=== PATIENT | male | born 1950 | race Caucasian/White ===

== ENCOUNTER 2016-12-23 14:26 | Inpatient (IN) | payer BC, MEDICARE, OTHER ==
--- NOTE | ~2016-12-23 | IDS ---
Interim Discharge Summary [facility] [address] [place]. [address] NAME: BETH MALIK : 52 STATUS : ADM IN PAT#: [id number] AGE: 66 ADM/REG DATE : 12/23/16 MR#: [id number] REPORT SERV DATE: 01/08/17 DICTATED BY: BETH RODRIGUEZ DATE: 01/08/17 REPORT STATUS : Draft TRANSCRIBED BY: MODL DATE: 01/08/17 ADMISSION DATE: 12/23/2016 DISCHARGE DATE: DATE OF TRANSFER TO THE ICU: 12/24/2016. DATE OF LAST INTERIM DISCHARGE SUMMARY: 01/01/2017. DATE OF THIS INTERIM SUMMARY: 01/08/2017. INTERIM DIAGNOSES: 1. Acute hypoxic respiratory failure. 2. Enterobacter pneumonia. 3. Haemophilus influenzae bacteremia. 4. Acute chronic obstructive pulmonary disease. 5. Hyperactive delirium. 6. Type 2 diabetes. 7. Atrial fibrillation with rapid ventricular response. ICU COURSE: Please see dictated H and P as well as consult notes and last interim summary by Dr. Orellana, on 01/01/2017 for previous presentation and hospitalization up until that point. When I took over care of the patient beginning on the 01/04/2017, the patient remained on the ventilator at that time, and was growing Enterobacter in his sputum and having some issues with hyperactive delirium making it difficulty to wean him from the ventilator. 1. Acute hypoxic respiratory failure. The patient had a trial of extubation with re- intubation last week and was approaching potential for tracheostomy this week. When I took over again to do daily CPAP trials, the patient made progress and was able to be liberated from the ventilator on the 01/05/2017. Since that time, he has actually done very well from a respiratory standpoint. We have been doing aggressive pulmonary toilet with spirometry, EzPAP, flutter valve. PT is also started seeing him and has been working with him. He did fail his initial swallow study several days ago, so he is currently n.p.o. and has an NG tube for his tube feeds and his p.o. medications. He is supposed to repeat the swallow test today. His voice does appear stronger, so hopefully he will pass and we can start feeding him as he really wants his NG tube out. 2. Enterobacter pneumonia. The patient grew Enterobacter in his sputum which was resistant to the Rocephin that he was on at that time for H flu bacteremia, so he was changed to meropenem. He is now completed a course of antibiotics, and those were discontinued yesterday. No evidence of continued active pneumonia at this time. 3. H flu bacteremia. The patient completed a course of antibiotics for that, repeat cultures are negative. 4. COPD. The patient remains on bronchodilators. He is not on any IV steroids at this time. 5. Acute hyperactive delirium. Main issue to keep the patient in the ICU at this time is acute hyperactive delirium. He has been on Precedex all week. We have been weaning that and have almost been able to get him off that. I have him on p.o. Seroquel and have added IV Haldol p.r.n. in attempts to wean him off the Precedex. Once he is able Interim Discharge Summary [address] [place]. [address] NAME: BETH MALIK : 52 STATUS : ADM IN [facility]#: [id number] AGE: 66 ADM/REG DATE : 12/23/16 MR#: [id number] REPORT SERV DATE: 01/08/17 DICTATED BY: BETH RODRIGUEZ DATE: 01/08/17 REPORT STATUS : Draft TRANSCRIBED BY: FELI DATE: 01/08/17 to sustain off the Precedex and have his delirium controlled, then he should be able to go out to the floor. 6. Type 2 diabetes. The patient is well controlled on Levemir and sliding scale insulin. 7. Atrial fibrillation with rapid ventricular response. The patient has been well controlled on p.o. amiodarone all week. 8. The patient still remains in the ICU at this time. Again, biggest issue right now is his delirium. If we get him off the Precedex, we get him out to the floor. The oncoming director quality systems will take over care of the patient tomorrow. Please call if you have any questions. VANI/FELI Beth Rodriguez MD / [id number] CC: DO Yousuf Mane
--- NOTE | ~2016-12-23 | OP ---
Record Of Operation [facility] [address] [place] [address] NAME: BETH MALIK : 52 STATUS : ADM IN PAT#: [id number] AGE: 66 ADM/REG DATE : 12/23/16 MR#: [id number] REPORT SERV DATE: 12/31/16 DICTATED BY: LILA ORELLANA DATE: 12/31/16 REPORT STATUS : Draft TRANSCRIBED BY: MODL DATE: 12/31/16 DATE OF PROCEDURE: 12/31/2016 PROCEDURE: Intubation. REASON AND PROCEDURE DETAIL: The patient initially intubated for pneumonia, hypoxia, and delirium tremens. The patient has been a difficult wean over the past few days, and trial extubation was done to see if the patient would be able to remain off the vent. However, he became tachypneic soon afterwards and required intubation which was accomplished with 5 mL of IV Diprivan and 20 mg of IV etomidate. A GlideScope was used with a #4 blade. Vocal cords were well visualized and an #8 endotracheal tube was placed on the first attempt without difficulty. Chest x-ray confirmed good placement of the tube. /FELI Lila Orellana M.D. / [id number] CC: Francisco Estrada, [facility]
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
--- NOTE | ~2016-12-23 | DS ---
Discharge Summary [facility] [address] [place]. [address] NAME: BETH MALIK : 52 STATUS : DIS IN PAT#: [id number] AGE: 66 ADM/REG DATE : 12/23/16 MR#: [id number] REPORT SERV DATE: 01/14/17 DICTATED BY: JACKY BROWN DATE: 01/13/17 REPORT STATUS : Draft TRANSCRIBED BY: MODL DATE: 01/13/17 ADMISSION DATE: 12/23/2016 DISCHARGE DATE: 01/13/2017 CONSULTANTS: Dr. Johnnie Pérez and Dr. Alpa Orellana and Dr. Beth Rodriguez, Critical Care and Dr. Iraheta, Ear, Nose, and Throat. DISCHARGE DIAGNOSES: 1. Acute hypoxic respiratory failure due to community-acquired pneumonia and resultant in ventilator dependent respiratory status and septic shock with Enterobacter. 2. Haemophilus influenzae bacteremia. 3. Acute exacerbation of chronic obstructive pulmonary disease. 4. True vocal cord paralysis, right side. 5. Delirium tremens in an alcoholic. 6. Diabetes mellitus type 2. 7. Paroxysmal atrial fibrillation. 8. Adenocarcinoma, left upper lobe status post radiation therapy. 9. Hepatitis C virus. 10.Chronic pain involving neck, shoulders, and back on chronic opiates. 11.History of gynecomastia. HISTORY: The patient presented to the emergency room at [facility] with lethargy, low blood pressure, shortness of breath, chest pain, was initially admitted to the Hospitalist Service in the IMCU with IV fluids, antibiotics, and cultures. The patient deteriorated and had to be moved to the intensive care and required intubation. Sputum cultures had grown out Enterobacter cloacae, one set grew out Staph aureus, two blood cultures grew out Haemophilus influenza. The patient had to be reintubated a number of times, was difficult to wean off the ventilator. CT of his chest showed improving consolidation in the left upper lobe, some patchy left lower lobe consolidation, some nodular irregularity of right apex, possibly fibrosis as well as COPD. The patient went through alcohol withdrawal and delirium making it difficult to get him out of the intensive care. He had Seroquel and Ativan, which seemed to finally helped best of all. He was able to move then out of the intensive care. While in the intensive care and acutely ill, he had transient atrial fibrillation with rapid ventricular response. He was placed on amiodarone and metoprolol, converted back into sinus rhythm while in the intensive care and not placed on any anticoagulation by the Critical Care team. The patient has severe protein-calorie malnutrition. He initially was getting tube feedings. After extubation, he was noticed to have a persistent hoarseness of his voice, so was seen by Swallow and Speech. They did a modified barium showing that he should be on a purred diet, pureed meats and gravy, and pudding-thickness liquid, and recommended for Discharge Summary [address] [address] NAME: BETH MALIK : 52 STATUS : DIS IN PAT#: [id number] AGE: 66 ADM/REG DATE : 12/23/16 MR#: [id number] REPORT SERV DATE: 01/14/17 DICTATED BY: JACKY BROWN DATE: 01/13/17 REPORT STATUS : Draft TRANSCRIBED BY: FELI DATE: 01/13/17 outpatient electrical stimulation therapy. He was seen by Ear, Nose, and Throat, Dr. Iraheta on 01/11/2017 and found to have right-sided true vocal cord palsy, possibly due to the lengthy intubation as well as his lung cancer. He also recommended thickened liquids and outpatient electrical stimulation therapy and follow up in his office in about two weeks. The patient has hepatitis C antibody positive. The rest of his hepatitis panel was negative and his HIV was nonreactive. His urine strep and Legionella antigens were nonreactive. He did have acute kidney injury with his creatinine going up to a peak of 3.35 on admission, but it normalized within a few days and stayed normal throughout the rest of his hospitalization. He is ambulatory, felt to not need inpatient PT or OT, but outpatient speech and swallow therapy and those arrangements are made. He is calm. He is cooperative. He has been sleeping well. We have been tapering down his Seroquel. He is currently at 50 mg p.o. q.h.s. and we anticipate that his PCP should be able to continue tapering that down and off. We are also recommending case management to give him AA options for long-term follow up. He states he has done smoking and drinking, but we would recommend that nonetheless. His discharge followup should include a visit with his PCP, Dr. Yousuf Bryant in one week. With his Pain Management, Dr. Francisco Pappas in [place] as his per usual routine, with [facility] as a new patient to followup after this one episode of paroxysmal atrial fibrillation when he had acute pneumonia and shock. He should see them in about three to four weeks. He should follow up with Ear, Nose, and Throat, Dr. Beth Iraheta in two weeks and Radiation Oncology, Dr. Sheikh as scheduled. He had a PICC line which we are asking to be removed before discharge. DISCHARGE MEDICATIONS: Amiodarone 200 mg b.i.d. folic acid 1 mg daily, melatonin 3 mg at bedtime p.r.n., metoprolol 12.5 mg b.i.d., nicotine patch 21 mg size [id number], Prilosec 20 mg daily, Seroquel 50 mg at bedtime (with tapering by PCP to the point where hopefully he can be off at all together), Florastor twice a day for three weeks, metformin 500 mg b.i.d., albuterol MDI two puffs q.4 hours p.r.n. shortness of breath, Symbicort 160/4.5 two puffs b.i.d., Tylenol 650 q.6 hours p.r.n. minor pain, Percocet 10/325 q.i.d. which he takes chronically from his Pain Management doctor p.r.n., Flomax 0.4 mg each evening, Spiriva one capsule inhaled daily, aspirin 81 mg daily, nitroglycerin 0.4 mg sublingual p.r.n. chest pain. He had an echocardiogram on 12/24/2016, left atrial size 3.3 cm, left ventricular ejection fraction 50%. I spent 41 minutes today with the patient and with discharge planning. DICTATED BY: Jacky Brown M.D. RSG/MODL Discharge Summary [address] [address] NAME: BETH MALIK : 52 STATUS : DIS IN PAT#: [id number] AGE: 66 ADM/REG DATE : 12/23/16 MR#: [id number] REPORT SERV DATE: 01/14/17 DICTATED BY: JACKY BROWN DATE: 01/13/17 REPORT STATUS : Draft TRANSCRIBED BY: FELI DATE: 01/13/17 Jacky Brown M.D. / [id number] CC: Jacky Brown M.D. [facility] Shine Sheikh M.D. , [facility] Ezequiel Garcia MD
--- NOTE | ~2016-12-23 | CN ---
Consultation Report [facility] [address] [place]. [address] NAME: BETH SWEET : 52 STATUS : ADM IN [facility]#: [id number] AGE: 66 ADM/REG DATE : 12/23/16 MR#: [id number] REPORT SERV DATE: 12/24/16 DICTATED BY: SYLWIA PÉREZ IV DATE: 12/24/16 REPORT STATUS : Draft TRANSCRIBED BY: FELI DATE: 12/24/16 PULMONARY CONSULTATION DATE OF CONSULTATION: 12/24/2016 TIME SEEN: 1130 hours to 1200 hours and 1330 hours to 1400 hours for 60 minutes of critical care time. REASON FOR REQUEST: Hypoxemic respiratory failure, multilobar pneumonia, and sepsis. HISTORY OF PRESENT ILLNESS: History was obtained from the records and from the patient. Mr. Sweet is a 66-year-old male with a history of COPD, reported lung cancer, status post radiation therapy, diabetes mellitus, alcohol and tobacco dependency, who was admitted with pleuritic left-sided chest pain with shortness of breath and significant hypotension with sepsis and multilobar pneumonia. The patient was reportedly in his normal state of health until the day prior to presentation. He developed a cough intermittently productive of clear phlegm with chills. He had noted increasing shortness of breath with left pleuritic chest pain. Because of progressive symptoms, he sought evaluation in the emergency room. There, he was significantly hypotensive with systolic blood pressures in the 60s. He was given fluid resuscitation and had a CT angiogram performed which demonstrated multilobar pneumonia predominantly on the left. The patient was empirically placed on antibiotic therapy. He was given 3 L of fluid, however, had persistent hypotension for which he was moved to the [facility]. He had increasing oxygen needs. Currently, he is on BiPAP therapy. The patient is on bronchodilator medications at home with which he is compliant. He is not on supplemental oxygen. The patient was exposed to his brother who had a respiratory infection. The patient denies hemoptysis. PULMONARY HISTORY: Remarkable for no history of childhood asthma. He does carry the diagnosis of adult COPD though no pulmonary function studies are available at this facility. He reportedly has had lung cancer diagnosed at the [facility] and treated by Dr. Sheikh at [facility] with the CyberKnife. The patient is a [id number] smoker who continues to smoke two packs a day. He is unsure about his immunization status. PAST MEDICAL HISTORY: Remarkable for: 1. COPD. 2. Reported lung cancer. 3. Diabetes mellitus. 4. Alcohol and tobacco dependency. SURGERIES: Appendectomy and CyberKnife treatment for the lung cancer. ALLERGIES: THERE ARE NO KNOWN DRUG ALLERGIES. CURRENT MEDICATIONS: The patient is on Brovana unit dose twice a day, DuoNebs every four Consultation Report [address] [place]. [address] NAME: BETH SWEET : 52 STATUS : ADM IN PAT#: [id number] AGE: 66 ADM/REG DATE : 12/23/16 MR#: [id number] REPORT SERV DATE: 12/24/16 DICTATED BY: SYLWIA PÉREZ IV DATE: 12/24/16 REPORT STATUS : Draft TRANSCRIBED BY: FELI DATE: 12/24/16 hours, folic acid 1 mg daily, Habitrol patch 21 mg daily, heparin 5000 units q.12 hours, vancomycin per Pharmacy, Mucomyst every 8 hours for 48 hours, insulin sliding scale, Protonix 40 mg daily, Pulmicort 1 mg twice a day, Solu-Cortef 100 mg q.8 hours, multivitamin daily, and Zosyn 3.375 g q.8 hours. SOCIAL HISTORY: Remarkable for the tobacco use as above. The patient has seven beers a day and drinks seven days a week. He has by his report not had withdrawal, though reportedly has had withdrawal in the records. He takes narcotics though no other illicit drug use. He is has four children. FAMILY HISTORY: Remarkable for mother with diabetes mellitus and father with COPD and there is a brother with alcohol use. REVIEW OF SYSTEMS: 14 systems reviewed and pertinent positives as noted above. PHYSICAL EXAMINATION: GENERAL: This is an actually well-developed elderly male, appearing older than his stated age, who is slightly agitated and constantly wanting to remove his BiPAP mask to drink water. VITAL SIGNS: Temperature is 98, pulse is 94, respiratory rate is 32, saturations are 93% on 50% on the BiPAP, and blood pressure is 96/67. HEENT: The patient is normocephalic, atraumatic. Extraocular movements are intact. Pupils react to light. Sclerae and conjunctivae normal. He has a BiPAP mask in place on quick look. He has a Mallampati II to III airway with narrowing of the posterior pharyngeal space. He is edentulous. NECK: Without any palpable lymphadenopathy or thyromegaly. CHEST: The patient has crackles and rhonchi throughout the inspiratory crackles and inspiratory and expiratory rhonchi throughout the left hemithorax with some rhonchi expiratory on the right. No true wheezes are noted. Expiratory phase is prolonged. CARDIOVASCULAR: Jugular venous pulsations are difficult to elicit. He has 2+ carotid upstrokes. No obvious bruit. He has a regular S1, S2 with no clear murmur or S3. Peripheral pulses are diminished. ABDOMEN: Protuberant, soft. There are hypoactive bowel sounds. There is no palpable hepatosplenomegaly or mass. Surgical scars noted. EXTREMITIES: Demonstrate no cyanosis, clubbing, edema, or palpable cords. NEUROLOGIC: The patient follows commands, able to move all extremities. Strength is 5/5 and sensation is intact to light touch. LABORATORY DATA: Chest, CT scan, and x-ray demonstrates infiltrate throughout the left hemithorax. No significant mass or adenopathy is noted. On CT scan, he is predominantly in the posterior left upper lobe into the lingula and some medial left lower lobe and some patchy right lower lobe. Urine antigens for Legionella and Pneumococcus are negative. CBC: Hemoglobin 11.5, hematocrit 33.5, platelet count was 105,000, white count is 2.9. INR Consultation Report [address] [address] NAME: BETH SWEET : 52 STATUS : ADM IN [facility]#: [id number] AGE: 66 ADM/REG DATE : 12/23/16 MR#: [id number] REPORT SERV DATE: 12/24/16 DICTATED BY: SYLWIA PÉREZ IV DATE: 12/24/16 REPORT STATUS : Draft TRANSCRIBED BY: MODL DATE: 12/24/16 is 1.5, PTT is 38.6 procalcitonin level is 33.23, lactate was initially 7.9, now 4.2. Chemistry: Sodium 133, potassium 4.1, chloride 98, bicarb 21, BUN 30, creatinine 2.09, glucose of 105. Magnesium is 1.5. Phos is 4. Hemoglobin A1c is 6.2. BNP is 721. Blood gas shows pH 7.32, pCO2 of 40, pO2 of 52 with the admission pCO2 of 48, urine drug screen was positive for opiates. ASSESSMENT AND PLAN: 1. Respiratory. The patient was tried transient Vapotherm because this is predominantly hypoxemic respiratory failure. However, he was intolerant and required to go back on BiPAP. We will add humidification. Rate will be decreased to 10. He will remain on his current nebulizer treatments with DuoNebs being given the EzPAP if he is not on BiPAP, Mucomyst will be given q.8 hours q.48 hours and discontinue. X-ray will be obtained daily. Blood gas will be obtained in the morning. 2. Infectious disease. The patient will be given broad coverage, was remaining on the Zosyn and vancomycin. Sputum was sent for Gram stain culture all possible. Urine antigens were negative. 3. Cardiovascular. Echocardiogram will be obtained with the elevated BNP. Levophed will be given if needed to maintain mean arterial pressure greater than 65. Vasopressin will be added if required. 4. Neurologic. Precedex will be given for alcohol withdrawal as well as for tolerance of the BiPAP. Ativan can be added as needed. Habitrol patch for tobacco dependency 21 mg daily, thiamine 200 mg IV daily. Pain medications as needed. 5. Gastrointestinal. Protonix will be continued. Clear liquid diet only. 6. Renal. The patient is on acute kidney injury on presentation, which has improved with hydration. Magnesium will be replaced. Phos will be added to the labs in the morning. 7. Endocrinologic. Stress dose steroids will be given. Insulin sliding scale has been ordered. 8. Hematologic. Heparin subcutaneous for deep vein thrombosis prophylaxis. We will follow both the counts at an INR in the morning with mild coagulopathy and watch platelets with discontinuation of heparin if they drop further. Thank you for consulting us. We will follow the patient with you. NM/MODL Sylwia Pérez IV, M.D. / [id number] CC: Ezequiel Whitaker
--- NOTE | ~2016-12-23 | HP ---
History And Physical [address] [place]. [address] NAME: BETH MALIK : 52 STATUS : ADM IN [facility]#: [id number] AGE: 66 ADM/REG DATE : 12/23/16 MR#: [id number] REPORT SERV DATE: 12/24/16 DICTATED BY: OSVALDO HAYWOOD DATE: 12/23/16 REPORT STATUS : Draft TRANSCRIBED BY: MODL DATE: 12/23/16 DATE OF ADMISSION: 12/23/2016 CHIEF COMPLAINT: Shortness of breath and chest pain. HISTORY OF PRESENT ILLNESS: This is a 66-year-old gentleman with history of COPD, alcohol abuse, chronic pain, as well as smoking presenting with a left-sided chest pain and shortness of breath. The patient reports that he was feeling fine actually up until yesterday. The patient started having some sharp left-sided chest pain along with some shortness of breath throughout yesterday and today. The patient also had some cough with clear white sputum. The patient otherwise denies any fevers or chills. The patient decided to come to the ER for further evaluation and care. In the ER, patient was found to be profoundly hypotensive with blood pressures 60s over 40s upon arrival, although he was completely asymptomatic. The patient was also found to be hypoxic with oxygen saturations into the 80s and required 15 L of oxygen per nasal cannula to maintain adequate oxygenation. Again, this was contrary to his clinical appearance. Initial lab evaluation revealed a hyponatremia with sodium of 129 and acute kidney injury with creatinine of 3.35. CBC revealed a white blood cell count of 7.1 with 46% bands. CT of the chest without contrast revealed a multifocal pneumonia as well as COPD changes. Internal Medicine consultation was requested for admission of the patient for further evaluation and care. REVIEW OF SYSTEMS: The patient denies any fevers or chills. Also, 14-point review of systems reviewed and negative other than mentioned above. MEDICATIONS: The list is still pending at this time. PAST MEDICAL HISTORY: 1. Chronic back pain due to a degenerative disk disease. 2. The patient is on chronic opiate therapy with opiate dependence. [facility]. 3. Alcohol abuse and dependence with history of DTs. 4. Diabetes type 2. 5. Chronic obstructive pulmonary disease. 6. Questionable coronary artery disease. PAST SURGICAL HISTORY: Questionable coronary artery stent. FAMILY HISTORY: Alcohol abuse. SOCIAL HISTORY: The patient does smoke between 2 to 2-1/2 packs of cigarettes per day. The patient also abuses alcohol, although he is not very clear and specific about his amount. Also, patient is known to have abused multiple drugs in the past. History And Physical [address] [address] NAME: BETH MALIK : 52 STATUS : ADM IN PAT#: [id number] AGE: 66 ADM/REG DATE : 12/23/16 MR#: [id number] REPORT SERV DATE: 12/24/16 DICTATED BY: OSVALDO HAYWOOD DATE: 12/23/16 REPORT STATUS : Draft TRANSCRIBED BY: FELI DATE: 12/23/16 PHYSICAL EXAMINATION: VITAL SIGNS: Temperature 98.0, blood pressure 89/51, pulse 94, respiratory rate of 27, saturating 96% on 15 L of oxygen per nasal cannula. NEURO: The patient is alert and oriented x3 with no focal neurologic deficits. GENERAL: The patient is awake, does not appear to be in acute distress, and he is cooperative. NECK: No JVD. No lymphadenopathy. Normal thyroid. CHEST: No midline sternotomy scar and no tenderness to palpation. LUNGS: Diffuse rhonchi bilaterally but otherwise the patient has actually fairly normal respiratory effort, albeit he is on high-flow oxygen. CARDIOVASCULAR: The patient is slightly tachycardic, but otherwise, no murmurs, rubs, or gallops, and PMI is nondisplaced. ABDOMEN: Soft, nontender with active bowel sounds and no organomegaly. EXTREMITIES: No edema. Normal distal pulses. No calf tenderness. SKIN: Clean, dry, warm, and intact. LABORATORY DATA: Sodium is 129, potassium 3.8, chloride 95, BUN 30, creatinine 3.35, glucose 106, calcium 7.5, and magnesium 1.4. White blood cell count of 7.1 with 46% bands, hemoglobin is 11.2, platelets 147. INR is 1.5. Troponin is less than 0.02. ABG; pH is 7.25, pCO2 is 42, PO2 is 54, and oxygen saturation of 82.6 percent on 40% FiO2. Chest x-ray shows bilateral infiltrates. CT of the chest without contrast shows a multifocal pneumonia as well as extensive COPD changes. ASSESSMENT: This is a 66-year-old gentleman with history of smoking, polypharmacy, chronic obstructive pulmonary disease, presenting with community-acquired pneumonia with severe sepsis. 1. Community-acquired pneumonia with severe sepsis with hypotension. 2. Acute kidney injury with creatinine of 3.35 whereas his baseline is 1.22. 3. Acute hypoxic respiratory failure secondary to above. 4. Also a component of acute exacerbation of chronic obstructive pulmonary disease. 5. Continued smoking. 6. Alcohol abuse and dependence and possibly other drugs. 7. Hyponatremia. 8. Chronic back pain with narcotic dependence. 9. Diabetes. PLAN: The plan is to admit the patient into IMCU with extremely close monitoring. The patient will be given aggressive IV fluid resuscitation. In's and out's will be closely monitored as well as daily labs to include daily renal function. I will complete sepsis workup with blood cultures, sputum cultures, and procalcitonin level. I will also check urinary antigens for strep and Legionella. I will start the patient on empiric vancomycin and Zosyn, and I will also treat the patient with oxygen support, bronchodilator therapies, as well as IV Solu-Medrol. For the alcohol abuse with history of DTs, the patient will be on daily vitamins as well as CIWA protocol. For smoking cessation, counseling was provided, and the patient will be given a nicotine patch. For hyponatremia, I will continue to monitor his daily electrolytes. For chronic pain and opiate dependence, the patient will be given judicious amounts of pain control especially considering current hypotension. History And Physical [address] [address] NAME: BETH MALIK : 52 STATUS : ADM IN [facility]#: [id number] AGE: 66 ADM/REG DATE : 12/23/16 MR#: [id number] REPORT SERV DATE: 12/24/16 DICTATED BY: OSVALDO HAYWOOD DATE: 12/23/16 REPORT STATUS : Draft TRANSCRIBED BY: MODL DATE: 12/23/16 Standard DVT prophylaxis. The patient is full code at this time. [facility]ELI Osvaldo Haywood MD / [id number] CC: Ezequiel Whitaker
--- NOTE | ~2016-12-23 | OP ---
Record Of Operation [facility] [address] [place]. [address] NAME: BETH MALIK : 52 STATUS : ADM IN [facility]#: [id number] AGE: 66 ADM/REG DATE : 12/23/16 MR#: [id number] REPORT SERV DATE: 12/25/16 DICTATED BY: SYLWIA PÉREZ IV DATE: 12/25/16 REPORT STATUS : Draft TRANSCRIBED BY: FELI DATE: 12/25/16 DATE OF PROCEDURE: 12/25/2016 PREOPERATIVE DIAGNOSIS: Hypoxemic respiratory failure with multilobar pneumonia, worsening on BiPAP. POSTOPERATIVE DIAGNOSIS: Hypoxemic respiratory failure with multilobar pneumonia, worsening on BiPAP. PROCEDURE: Laryngoscopic intubation with ventilator setup and placement of an orogastric tube. INDICATIONS: Multilobar pneumonia, sepsis, and worsening encephalopathy. CONTRAINDICATIONS: None. CONSENT: No consent is obtained, it is a lifesaving procedure, and the patient is a full code. PREOPERATIVE LABS: The patient's INR is 1.4. The PTT is 38.6, and platelet count 107,000. METHOD: All equipment was made available. The patient was brought to the head of the bed. The patient had been on BiPAP at 100% with saturations currently at 100%. The patient was transitioned to Ambu bag ventilation. He was given 30 mg of etomidate. Using the GlideScope, the vocal cords were easily visualized. There was thick debris in the posterior pharyngeal space, which was removed with suction. A #8 endotracheal tube was advanced through the vocal cords without difficulty on first pass. There was appropriate color change on the CO2 indicator with bilateral breath sounds. The tube was secured to 24 cm. X ray is currently pending. There was no blood loss. Once the tube was secured, an orogastric tube was placed and secured at 65 cm. The positioning of both tubes are currently pending. There was no blood loss for either procedure. The patient tolerated the procedure well. Oxygen saturations remaining in the 100% range throughout the procedure. SUSAN/FELI Sylwia Pérez IV, M.D. / [id number] CC: Anastasiya Roche M.D.
[~2016-12-23 14:26] MED LIST: FLOMAX4 PO; GLUCPH PO; KLONO5 PO; L20 PO; NAP500 PO; NEUR600 PO; OXYCOD PO; OXYCON40 PO; PRILO PO; PROSCAR5 PO; PROVHFA INH; SEROQUEL50 MG PO; TRAZ100 PO
[2016-12-23 15:13] LABS: BASOPHILS 0 %; EOSINOPHILS 0 %; ER CBC TAT 0 Hrs 03 Mins; HEMATOCRIT 33.1 % (40.0-51.0); HEMOGLOBIN 11.2 g/dL (13.6-17.8); IMMATURE GRANULOCYTES 8.4 %; LYMPHOCYTES 4.9 %; LYMPHOCYTES ABSOLUTE 0.35 10/3/uL (0.67-4.30); MEAN PLATELET VOLUME 8.3 fL (9.2-13.0); MONOCYTES 5.5 %; MONOCYTES ABSOLUTE 0.39 10/3/uL (0.21-1.20); NEUTROPHILS 81.2 %; RBC DISTRIBUTION WIDTH 15.3 % (12.0-16.0); RED CELL COUNT 3.59 10/6/uL (4.7-6.1); WHITE BLOOD CELLS 7.1 10/3/uL (4.5-10.5)
[2016-12-23 15:16] LABS: MANUAL DIFF NO %; MEAN CORPUS HGB CONC 33.8 g/dL (32.0-36.0); MEAN CORPUSCULAR HEMOGLOB 31.2 pg (26.0-34.0); MEAN CORPUSCULAR VOLUME 92.2 fL (80-100); PLATELET COUNT 147 10/3/uL (150-400)
[2016-12-23 15:23] LABS: INTERNATIONAL NORMAL RATI 1.5 UNITS (-)
[2016-12-23 15:24] LABS: PARTIAL THROMBO TIME 38.6 SEC (22.5-37.2)
[2016-12-23 15:27] LABS: PROTIME (NOT ORD) 17.5 SEC (12.0-14.5)
[2016-12-23 15:30] LABS: CALCIUM, SERUM 7.5 MG/DL (8.5-10.4); CHEST PAIN PROFILE TAT 0 Hrs 20 Mins; CHLORIDE, SERUM 95 MMOL/L (96-112); GFR AFRICAN AMERICAN 21 ML/MIN (>=60); GFR NON AFRICAN AMERICAN 18 ML/MIN (>=60); GLUCOSE, SERUM 106 MG/DL (60-99); POTASSIUM, SERUM 3.8 MMOL/L (3.5-5.3); TROPONIN I <0.02 NG/ML (<0.05)
[2016-12-23 15:31] LABS: BUN (BLOOD UREA NITROGEN) 30 MG/DL (6-23); CO2 (CARBON DIOXIDE) 19 MMOL/L (24-34); CREATININE 3.35 MG/DL (0.70-1.30); SODIUM, SERUM 129 MMOL/L (135-148)
[2016-12-23 15:43] LABS: BAND NEUTROPHILS 46 %; ER DIFF TAT 0 Hrs 33 Mins; IMMATURE GRANS ABSOLUTE (CALC) 0.43 10/3/uL (0.0-0.11); LYMPHOCYTES 6 %; LYMPHOCYTES ABSOLUTE (CALC) 0.43 10/3/uL (0.67-4.30); METAMYELOCYTES 6 %; MONOCYTES 5 %; MONOCYTES ABSOLUTE (CALC) 0.36 10/3/uL (0.21-1.20); NEUTROPHILS ABSOLUTE (CALC) 5.89 10/3/uL (2.02-8.40); SEGMENTED NEUTROPHIL (0) 37 %; TOTAL NUCLEATED CELLS 100
[2016-12-23] MEDS ORDERED: ENDOCET1 TA3 PO (15:51)
[2016-12-23] MEDS ORDERED: CELEBREX400 MG PO (15:51)
[2016-12-23] MEDS ORDERED: PROVHFA INH (15:52)
[2016-12-23] MEDS ORDERED: PRILO PO (15:52)
[2016-12-23] MEDS ORDERED: GLUCPH PO (15:52)
[2016-12-23] MEDS ORDERED: TRAZ100 PO (15:53)
[2016-12-23] MEDS ORDERED: FLOMAX4 PO (15:53)
[2016-12-23] MEDS ORDERED: SPIRIVA INH (15:53)
[2016-12-23] MEDS ORDERED: SYMBICORT 160/41 INH INH (15:53)
[2016-12-23] MEDS ORDERED: ASAB PO (15:55)
[2016-12-23] MEDS ORDERED: [UNRECOGNIZED DRUG - OTHER] PO (15:56)
[2016-12-23] MEDS ORDERED: NITROSTAT0.4 MG SL (15:57)
[2016-12-23 16:12] LABS: PLATELET ESTIMATE ADQ (ADEQUATE); RBC MORPHOLOGY NORM (NORMAL)
[2016-12-23 17:38] LABS: ALLENS TEST Pos; BE (BASE EXCESS) -9.1 MEQ/L (0 +/- 2.5); DEVICE NC; HCO3 (ACTUAL BICARBONATE) 17.7 MEQ/L (23-27); INSTRUMENT SERIAL # 8087; PCO2 (CO2 TENSION) 42 MMHG (35-45); PO2 (O2 TENSION) 54 MMHG (79-93); SAMPLE Arterial; pH 7.25 (7.37-7.43)
[2016-12-23 18:43] LABS: LACTATE 7.9 MMOL/L (0.3-2.4)
[2016-12-23 18:51] LABS: AMPHETAMINES (NOT ORD) NEG (NEG); BARBITURATES (NOT ORDERED NEG (NEG); BENZODIAZEPINES (NOT ORD) NEG (NEG); CANNABINOIDS (THC) NEG (NEG); COCAINE (NOT ORDERED) NEG (NEG); OPIATES POS (NEG); PHENCYCLIDINE(PCP) NEG (NEG); TRICYCLICS NEG (NEG)
[2016-12-23 21:31] LABS: BE (BASE EXCESS) -12.1 MEQ/L (0 +/- 2.5); CARBOXYHEMOGLOBIN 1.4 % (0-3); HCO3 (ACTUAL BICARBONATE) 16.5 MEQ/L (23-27); HEMOBLOGIN CONTENT 12.8 G/DL (14-18); INSTRUMENT SERIAL # 8083; METHEMOGLOBIN 0.4 % (0-3); O2 CONTENT 16.2 VOL% (18-24); PCO2 (CO2 TENSION) 48 MMHG (35-45); PO2 (O2 TENSION) 75 MMHG (79-93); pH 7.15 (7.37-7.43)
[2016-12-23 21:32] LABS: ALLENS TEST Pos; DEVICE HFNC; OPERATOR ID 30013; SAMPLE Arterial
[2016-12-23 23:06] LABS: B NATRIURETIC PEPTIDE (BNP) 720.7 PG/ML (< 100.0)
[2016-12-23 23:10] LABS: ACETAMINOPHEN LEVEL (TYLENOL) 4.8 MCG/ML (10.0-20.0); SALICYLATE 2.4 MG/DL (-); TROPONIN I <0.02 NG/ML (<0.05)
[2016-12-23 23:15] LABS: ALCOHOL < 10 MG/DL (0)
[2016-12-23 23:59] LABS: PROCALCITONIN 33.23 ng/mL (<0.5)
[2016-12-24 00:28] LABS: ALLENS TEST Pos; CARBOXYHEMOGLOBIN 1.2 % (0-3); HCO3 (ACTUAL BICARBONATE) 18.6 MEQ/L (23-27); HEMOBLOGIN CONTENT 12.7 G/DL (14-18); INSTRUMENT SERIAL # 8083; METHEMOGLOBIN 0.4 % (0-3); O2 CONTENT 16.1 VOL% (18-24); OPERATOR ID 30013; PCO2 (CO2 TENSION) 43 MMHG (35-45); PO2 (O2 TENSION) 66 MMHG (79-93); SAMPLE Arterial; pH 7.26 (7.37-7.43)
[2016-12-24 04:20] LABS: ALLENS TEST Pos; BE (BASE EXCESS) -5.8 MEQ/L (0 +/- 2.5); CARBOXYHEMOGLOBIN 0.8 % (0-3); HEMOBLOGIN CONTENT 12.5 G/DL (14-18); INSTRUMENT SERIAL # 8083; METHEMOGLOBIN 0.2 % (0-3); OPERATOR ID 30013; PCO2 (CO2 TENSION) 40 MMHG (35-45); PO2 (O2 TENSION) 52 MMHG (79-93); SAMPLE Arterial; pH 7.32 (7.37-7.43)
[2016-12-24 06:21] LABS: HEMATOCRIT 34.1 % (40.0-51.0); HEMOGLOBIN 11.7 g/dL (13.6-17.8); MEAN CORPUS HGB CONC 34.3 g/dL (32.0-36.0); MEAN CORPUSCULAR HEMOGLOB 31.8 pg (26.0-34.0); MEAN CORPUSCULAR VOLUME 92.7 fL (80-100); MEAN PLATELET VOLUME 8.4 fL (9.2-13.0); PLATELET COUNT 124 10/3/uL (150-400); RBC DISTRIBUTION WIDTH 15.3 % (12.0-16.0); RED CELL COUNT 3.68 10/6/uL (4.7-6.1)
[2016-12-24 06:22] LABS: WHITE BLOOD CELLS 1.4 10/3/uL (4.5-10.5)
[2016-12-24 06:23] LABS: MANUAL DIFF YES %
[2016-12-24 06:40] LABS: BUN (BLOOD UREA NITROGEN) 30 MG/DL (6-23); CALCIUM, SERUM 7.3 MG/DL (8.5-10.4); CHLORIDE, SERUM 98 MMOL/L (96-112); CO2 (CARBON DIOXIDE) 21 MMOL/L (24-34); GLUCOSE, SERUM 105 MG/DL (60-99); POTASSIUM, SERUM 4.1 MMOL/L (3.5-5.3); SGOT(AST) 84 U/L (5-40); SGPT(ALT) 56 U/L (5-65); SODIUM, SERUM 133 MMOL/L (135-148); TOTAL BILIRUBIN 0.6 MG/DL (0-1.2); TROPONIN I 0.03 NG/ML (<0.05)
[2016-12-24 06:41] LABS: A/G RATIO 0.7 (0.7-1.9); ALBUMIN 2.3 G/DL (3.5-5.0); ALKALINE PHOSPHATASE 27 U/L (45-117); CREATININE 2.09 MG/DL (0.70-1.30); GFR AFRICAN AMERICAN 37 ML/MIN (>=60); GFR NON AFRICAN AMERICAN 32 ML/MIN (>=60); GLOBULIN 3.5 G/DL (2.5-4.1); TOTAL PROTEIN 5.8 G/DL (6.0-8.5)
[2016-12-24 06:52] LABS: BAND NEUTROPHILS 48 %; IMMATURE GRANS ABSOLUTE (CALC) 0.14 10/3/uL (0.0-0.11); LYMPHOCYTES 22 %; LYMPHOCYTES ABSOLUTE (CALC) 0.31 10/3/uL (0.67-4.30); METAMYELOCYTES 8 %; MONOCYTES 4 %; MONOCYTES ABSOLUTE (CALC) 0.06 10/3/uL (0.21-1.20); MYELOCYTES 2 %; SEGMENTED NEUTROPHIL (0) 16 %; TOTAL NUCLEATED CELLS 50
[2016-12-24 06:53] LABS: PLATELET ESTIMATE SLT DEC (ADEQUATE); POLYCHROMASIA 1+ (2-5/OIF) (0-1/OIF)
[2016-12-24 07:24] LABS: GLYCOHEMOGLOBIN (HbA1c) 6.2 % (4.7-6.1)
[2016-12-24 11:13] LABS: HEMATOCRIT 33.5 % (40.0-51.0); HEMOGLOBIN 11.5 g/dL (13.6-17.8); MEAN CORPUS HGB CONC 34.3 g/dL (32.0-36.0); MEAN CORPUSCULAR HEMOGLOB 31.8 pg (26.0-34.0); MEAN CORPUSCULAR VOLUME 92.5 fL (80-100); MEAN PLATELET VOLUME 8.8 fL (9.2-13.0); PLATELET COUNT 105 10/3/uL (150-400); RBC DISTRIBUTION WIDTH 15.7 % (12.0-16.0); RED CELL COUNT 3.62 10/6/uL (4.7-6.1)
[2016-12-24 11:15] LABS: MANUAL DIFF YES %; WHITE BLOOD CELLS 2.9 10/3/uL (4.5-10.5)
[2016-12-24 11:33] LABS: BAND NEUTROPHILS 13 %; IMMATURE GRANS ABSOLUTE (CALC) 0.06 10/3/uL (0.0-0.11); LYMPHOCYTES 8 %; LYMPHOCYTES ABSOLUTE (CALC) 0.23 10/3/uL (0.67-4.30); METAMYELOCYTES 2 %; MONOCYTES 8 %; MONOCYTES ABSOLUTE (CALC) 0.23 10/3/uL (0.21-1.20); NEUTROPHILS ABSOLUTE (CALC) 2.38 10/3/uL (2.02-8.40); PLATELET ESTIMATE SLT DEC (ADEQUATE); RBC MORPHOLOGY NORM (NORMAL); SEGMENTED NEUTROPHIL (0) 69 %; TOTAL NUCLEATED CELLS 100; VACUOLATED NEUTROPHILES 1+
[2016-12-24 17:12] LABS: ALLENS TEST Pos; BE (BASE EXCESS) -2.4 MEQ/L (0 +/- 2.5); CARBOXYHEMOGLOBIN 0.7 % (0-3); HCO3 (ACTUAL BICARBONATE) 22.7 MEQ/L (23-27); HEMOBLOGIN CONTENT 11.3 G/DL (14-18); INSTRUMENT SERIAL # 8083; METHEMOGLOBIN 0.1 % (0-3); O2 CONTENT 14.3 VOL% (18-24); OPERATOR ID 18801; PCO2 (CO2 TENSION) 40 MMHG (35-45); PO2 (O2 TENSION) 63 MMHG (79-93); SAMPLE Arterial; pH 7.37 (7.37-7.43)
[2016-12-25 03:50] LABS: BE (BASE EXCESS) 1.4 MEQ/L (0 +/- 2.5); CARBOXYHEMOGLOBIN 1.1 % (0-3); HCO3 (ACTUAL BICARBONATE) 25.6 MEQ/L (23-27); HEMOBLOGIN CONTENT 11.4 G/DL (14-18); INSTRUMENT SERIAL # 8083; METHEMOGLOBIN 0.1 % (0-3); OPERATOR ID 13415; PCO2 (CO2 TENSION) 39 MMHG (35-45); PO2 (O2 TENSION) 70 MMHG (79-93); SAMPLE Arterial; pH 7.44 (7.37-7.43)
[2016-12-25 04:10] LABS: HEMATOCRIT 33.8 % (40.0-51.0); HEMOGLOBIN 11.7 g/dL (13.6-17.8); MEAN CORPUS HGB CONC 34.6 g/dL (32.0-36.0); MEAN CORPUSCULAR HEMOGLOB 31.9 pg (26.0-34.0); MEAN CORPUSCULAR VOLUME 92.1 fL (80-100); MEAN PLATELET VOLUME 9.4 fL (9.2-13.0); PLATELET COUNT 107 10/3/uL (150-400); RBC DISTRIBUTION WIDTH 15.2 % (12.0-16.0); RED CELL COUNT 3.67 10/6/uL (4.7-6.1)
[2016-12-25 04:12] LABS: MANUAL DIFF YES %; WHITE BLOOD CELLS 8.7 10/3/uL (4.5-10.5)
[2016-12-25 04:17] LABS: INTERNATIONAL NORMAL RATI 1.4 UNITS (-)
[2016-12-25 04:39] LABS: A/G RATIO 0.6 (0.7-1.9); ALBUMIN 2.1 G/DL (3.5-5.0); BUN (BLOOD UREA NITROGEN) 30 MG/DL (6-23); CALCIUM, SERUM 7.9 MG/DL (8.5-10.4); CHLORIDE, SERUM 97 MMOL/L (96-112); GLOBULIN 3.8 G/DL (2.5-4.1); SGOT(AST) 62 U/L (5-40); SGPT(ALT) 52 U/L (5-65); SODIUM, SERUM 134 MMOL/L (135-148); TOTAL PROTEIN 5.9 G/DL (6.0-8.5)
[2016-12-25 04:41] LABS: ALKALINE PHOSPHATASE 34 U/L (45-117); CO2 (CARBON DIOXIDE) 27 MMOL/L (24-34); CREATININE 1.31 MG/DL (0.70-1.30); GFR AFRICAN AMERICAN 66 ML/MIN (>=60); GFR NON AFRICAN AMERICAN 57 ML/MIN (>=60); GLUCOSE, SERUM 202 MG/DL (60-99); TOTAL BILIRUBIN 1.3 MG/DL (0-1.2)
[2016-12-25 04:48] LABS: BAND NEUTROPHILS 43 %; LYMPHOCYTES 5 %; LYMPHOCYTES ABSOLUTE (CALC) 0.44 10/3/uL (0.67-4.30); METAMYELOCYTES 7 %; MONOCYTES 4 %; MONOCYTES ABSOLUTE (CALC) 0.35 10/3/uL (0.21-1.20); MYELOCYTES 1 %; NEUTROPHILS ABSOLUTE (CALC) 7.22 10/3/uL (2.02-8.40); PLATELET ESTIMATE SLT DEC (ADEQUATE); RBC MORPHOLOGY NORM (NORMAL); SEGMENTED NEUTROPHIL (0) 40 %; TOTAL NUCLEATED CELLS 100
[2016-12-25 10:14] LABS: BE (BASE EXCESS) 1.7 MEQ/L (0 +/- 2.5); CARBOXYHEMOGLOBIN 0.3 % (0-3); HCO3 (ACTUAL BICARBONATE) 24.5 MEQ/L (23-27); HEMOBLOGIN CONTENT 11.4 G/DL (14-18); INSTRUMENT SERIAL # 8083; METHEMOGLOBIN 0.1 % (0-3); MODE CMV; O2 CONTENT 16.5 VOL% (18-24); PCO2 (CO2 TENSION) 32 MMHG (35-45); PO2 (O2 TENSION) 233 MMHG (79-93); SAMPLE Arterial
[2016-12-25 10:15] LABS: ALLENS TEST Pos; TIDAL VOLUME 550 ML
[2016-12-26 03:26] LABS: ALLENS TEST Pos; BE (BASE EXCESS) 9.2 MEQ/L (0 +/- 2.5); CARBOXYHEMOGLOBIN 0.8 % (0-3); HCO3 (ACTUAL BICARBONATE) 32.2 MEQ/L (23-27); HEMOBLOGIN CONTENT 10.8 G/DL (14-18); INSTRUMENT SERIAL # 8083; METHEMOGLOBIN 0.2 % (0-3); MODE CMV; O2 CONTENT 14.4 VOL% (18-24); OPERATOR ID 16503; PCO2 (CO2 TENSION) 38 MMHG (35-45); PO2 (O2 TENSION) 70 MMHG (79-93); SAMPLE Arterial; TIDAL VOLUME 550 ML; pH 7.55 (7.37-7.43)
[2016-12-26 05:20] LABS: BASOPHILS 0.1 %; BASOPHILS ABSOLUTE 0.01 10/3/uL (0.0-0.16); EOSINOPHILS 0 %; HEMATOCRIT 29.7 % (40.0-51.0); HEMOGLOBIN 10.3 g/dL (13.6-17.8); IMMATURE GRANULOCYTES 1.9 %; IMMATURE GRANULOCYTES ABSOLUTE 0.23 10/3/uL (0.0-0.11); LYMPHOCYTES 2.7 %; LYMPHOCYTES ABSOLUTE 0.33 10/3/uL (0.67-4.30); MANUAL DIFF NO %; MEAN CORPUS HGB CONC 34.7 g/dL (32.0-36.0); MEAN CORPUSCULAR HEMOGLOB 31.5 pg (26.0-34.0); MEAN CORPUSCULAR VOLUME 90.8 fL (80-100); MEAN PLATELET VOLUME 9.4 fL (9.2-13.0); MONOCYTES 5.8 %; MONOCYTES ABSOLUTE 0.71 10/3/uL (0.21-1.20); NEUTROPHILS 89.5 %; NEUTROPHILS ABSOLUTE 10.96 10/3/uL (2.02-8.40); PLATELET COUNT 107 10/3/uL (150-400); RBC DISTRIBUTION WIDTH 15.1 % (12.0-16.0); RED CELL COUNT 3.27 10/6/uL (4.7-6.1); WHITE BLOOD CELLS 12.2 10/3/uL (4.5-10.5)
[2016-12-26 08:06] LABS: ALBUMIN 1.8 G/DL (3.5-5.0); BUN (BLOOD UREA NITROGEN) 31 MG/DL (6-23); CALCIUM, SERUM 7.2 MG/DL (8.5-10.4); CHLORIDE, SERUM 96 MMOL/L (96-112); CREATININE 0.95 MG/DL (0.70-1.30); GFR AFRICAN AMERICAN 97 ML/MIN (>=60); GFR NON AFRICAN AMERICAN 84 ML/MIN (>=60); SODIUM, SERUM 133 MMOL/L (135-148)
[2016-12-26 08:09] LABS: CO2 (CARBON DIOXIDE) 36 MMOL/L (24-34); GLUCOSE, SERUM 299 MG/DL (60-99); PHOSPHORUS, SERUM 0.8 MG/DL (2.5-4.5); POTASSIUM, SERUM 2.6 MMOL/L (3.5-5.3)
[2016-12-26 16:32] LABS: PHOSPHORUS, SERUM 1.6 MG/DL (2.5-4.5); POTASSIUM, SERUM 3.5 MMOL/L (3.5-5.3)
[2016-12-27 04:14] LABS: BE (BASE EXCESS) 5.5 MEQ/L (0 +/- 2.5); CARBOXYHEMOGLOBIN 0.5 % (0-3); HCO3 (ACTUAL BICARBONATE) 28.4 MEQ/L (23-27); HEMOBLOGIN CONTENT 11.3 G/DL (14-18); INSTRUMENT SERIAL # 8083; METHEMOGLOBIN 0.1 % (0-3); OPERATOR ID 32193; PCO2 (CO2 TENSION) 36 MMHG (35-45); PO2 (O2 TENSION) 71 MMHG (79-93); SAMPLE Arterial; TIDAL VOLUME 550 ML; pH 7.52 (7.37-7.43)
[2016-12-27 05:22] LABS: BASOPHILS 0.1 %; BASOPHILS ABSOLUTE 0.01 10/3/uL (0.0-0.16); EOSINOPHILS 0 %; HEMOGLOBIN 9.7 g/dL (13.6-17.8); IMMATURE GRANULOCYTES 0.5 %; IMMATURE GRANULOCYTES ABSOLUTE 0.05 10/3/uL (0.0-0.11); LYMPHOCYTES ABSOLUTE 0.78 10/3/uL (0.67-4.30); MANUAL DIFF NO %; MEAN CORPUS HGB CONC 33.4 g/dL (32.0-36.0); MEAN CORPUSCULAR HEMOGLOB 30.8 pg (26.0-34.0); MEAN CORPUSCULAR VOLUME 92.1 fL (80-100); MEAN PLATELET VOLUME 9.7 fL (9.2-13.0); MONOCYTES 7.6 %; MONOCYTES ABSOLUTE 0.74 10/3/uL (0.21-1.20); NEUTROPHILS 83.8 %; PLATELET COUNT 87 10/3/uL (150-400); RBC DISTRIBUTION WIDTH 15.9 % (12.0-16.0); RED CELL COUNT 3.15 10/6/uL (4.7-6.1); WHITE BLOOD CELLS 9.8 10/3/uL (4.5-10.5)
[2016-12-27 05:43] LABS: A/G RATIO 0.6 (0.7-1.9); ALBUMIN 1.9 G/DL (3.5-5.0); BUN (BLOOD UREA NITROGEN) 32 MG/DL (6-23); CALCIUM, SERUM 7.8 MG/DL (8.5-10.4); CHLORIDE, SERUM 104 MMOL/L (96-112); CREATININE 0.71 MG/DL (0.70-1.30); GFR AFRICAN AMERICAN 114 ML/MIN (>=60); GFR NON AFRICAN AMERICAN 98 ML/MIN (>=60); GLOBULIN 3.4 G/DL (2.5-4.1); POTASSIUM, SERUM 3.6 MMOL/L (3.5-5.3); SGOT(AST) 53 U/L (5-40); SGPT(ALT) 46 U/L (5-65); TOTAL PROTEIN 5.3 G/DL (6.0-8.5)
[2016-12-27 05:44] LABS: ALKALINE PHOSPHATASE 95 U/L (45-117); CO2 (CARBON DIOXIDE) 30 MMOL/L (24-34); GLUCOSE, SERUM 177 MG/DL (60-99); PHOSPHORUS, SERUM 2.5 MG/DL (2.5-4.5); SODIUM, SERUM 140 MMOL/L (135-148); TOTAL BILIRUBIN 0.5 MG/DL (0-1.2)
[2016-12-28 01:48] LABS: BASOPHILS 0.1 %; BASOPHILS ABSOLUTE 0.01 10/3/uL (0.0-0.16); EOSINOPHILS 0.1 %; EOSINOPHILS ABSOLUTE 0.01 10/3/uL (0.0-0.53); IMMATURE GRANULOCYTES ABSOLUTE 0.09 10/3/uL (0.0-0.11); LYMPHOCYTES 6.8 %; MEAN CORPUSCULAR HEMOGLOB 31.2 pg (26.0-34.0); MEAN CORPUSCULAR VOLUME 91.6 fL (80-100); MEAN PLATELET VOLUME 10.8 fL (9.2-13.0); MONOCYTES 10.8 %; MONOCYTES ABSOLUTE 0.95 10/3/uL (0.21-1.20); NEUTROPHILS 81.2 %; NEUTROPHILS ABSOLUTE 7.14 10/3/uL (2.02-8.40); PLATELET COUNT 107 10/3/uL (150-400); RBC DISTRIBUTION WIDTH 15.9 % (12.0-16.0); WHITE BLOOD CELLS 8.8 10/3/uL (4.5-10.5)
[2016-12-28 01:50] LABS: HEMOGLOBIN 11.9 g/dL (13.6-17.8); MANUAL DIFF NO %; RED CELL COUNT 3.82 10/6/uL (4.7-6.1)
[2016-12-28 01:57] LABS: INTERNATIONAL NORMAL RATI 0.9 UNITS (-)
[2016-12-28 01:58] LABS: PARTIAL THROMBO TIME 23.9 SEC (22.5-37.2)
[2016-12-28 01:59] LABS: PROTIME (NOT ORD) 12.5 SEC (12.0-14.5)
[2016-12-28 02:07] LABS: A/G RATIO 0.5 (0.7-1.9); ALBUMIN 2.1 G/DL (3.5-5.0); BUN (BLOOD UREA NITROGEN) 30 MG/DL (6-23); CALCIUM, SERUM 8.3 MG/DL (8.5-10.4); CHLORIDE, SERUM 102 MMOL/L (96-112); CO2 (CARBON DIOXIDE) 30 MMOL/L (24-34); CREATININE 0.84 MG/DL (0.70-1.30); GFR AFRICAN AMERICAN 106 ML/MIN (>=60); GFR NON AFRICAN AMERICAN 92 ML/MIN (>=60); GLUCOSE, SERUM 170 MG/DL (60-99); PHOSPHORUS, SERUM 2.6 MG/DL (2.5-4.5); POTASSIUM, SERUM 3.5 MMOL/L (3.5-5.3); SGOT(AST) 60 U/L (5-40); SGPT(ALT) 69 U/L (5-65); SODIUM, SERUM 141 MMOL/L (135-148); TOTAL BILIRUBIN 0.6 MG/DL (0-1.2); TOTAL PROTEIN 6.1 G/DL (6.0-8.5)
[2016-12-28 02:08] LABS: ALKALINE PHOSPHATASE 144 U/L (45-117); CHEST PAIN PROFILE TAT -1 Hrs 8 Mins; TROPONIN I 0.58 NG/ML (<0.05)
[2016-12-28 03:48] LABS: BE (BASE EXCESS) 3.1 MEQ/L (0 +/- 2.5); CARBOXYHEMOGLOBIN 1.1 % (0-3); HCO3 (ACTUAL BICARBONATE) 25.4 MEQ/L (23-27); HEMOBLOGIN CONTENT 11.7 G/DL (14-18); INSTRUMENT SERIAL # 8083; METHEMOGLOBIN 0.1 % (0-3); O2 CONTENT 15.3 VOL% (18-24); OPERATOR ID 16503; PCO2 (CO2 TENSION) 31 MMHG (35-45); PO2 (O2 TENSION) 65 MMHG (79-93); SAMPLE Arterial; pH 7.53 (7.37-7.43)
[2016-12-28 03:49] LABS: ALLENS TEST Pos; MODE CMV; TIDAL VOLUME 550 ML
[2016-12-28 08:37] LABS: CPK 260 U/L (0-200)
[2016-12-28 08:38] LABS: CK-MB 0.9 NG/ML; TROPONIN I 0.35 NG/ML (<0.05)
[2016-12-29 03:55] LABS: HEMOGLOBIN 10.4 g/dL (13.6-17.8); MEAN CORPUS HGB CONC 33.8 g/dL (32.0-36.0); MEAN CORPUSCULAR HEMOGLOB 31.3 pg (26.0-34.0); MEAN CORPUSCULAR VOLUME 92.8 fL (80-100); MEAN PLATELET VOLUME 10.6 fL (9.2-13.0); PLATELET COUNT 131 10/3/uL (150-400); RBC DISTRIBUTION WIDTH 16.1 % (12.0-16.0); RED CELL COUNT 3.32 10/6/uL (4.7-6.1); WHITE BLOOD CELLS 8.2 10/3/uL (4.5-10.5)
[2016-12-29 03:58] LABS: HEMATOCRIT 30.8 % (40.0-51.0); MANUAL DIFF YES %
[2016-12-29 04:12] LABS: A/G RATIO 0.5 (0.7-1.9); ALBUMIN 1.8 G/DL (3.5-5.0); ALKALINE PHOSPHATASE 147 U/L (45-117); CALCIUM, SERUM 8.1 MG/DL (8.5-10.4); CHLORIDE, SERUM 105 MMOL/L (96-112); CO2 (CARBON DIOXIDE) 30 MMOL/L (24-34); GFR AFRICAN AMERICAN 109 ML/MIN (>=60); GFR NON AFRICAN AMERICAN 94 ML/MIN (>=60); GLOBULIN 3.7 G/DL (2.5-4.1); GLUCOSE, SERUM 162 MG/DL (60-99); POTASSIUM, SERUM 3.5 MMOL/L (3.5-5.3); SGOT(AST) 48 U/L (5-40); SGPT(ALT) 68 U/L (5-65); SODIUM, SERUM 142 MMOL/L (135-148); TOTAL BILIRUBIN 0.4 MG/DL (0-1.2); TOTAL PROTEIN 5.5 G/DL (6.0-8.5)
[2016-12-29 04:13] LABS: BUN (BLOOD UREA NITROGEN) 35 MG/DL (6-23)
[2016-12-29 04:17] LABS: BAND NEUTROPHILS 1 %; IMMATURE GRANS ABSOLUTE (CALC) 0.08 10/3/uL (0.0-0.11); LYMPHOCYTES 12 %; LYMPHOCYTES ABSOLUTE (CALC) 0.98 10/3/uL (0.67-4.30); METAMYELOCYTES 1 %; MONOCYTES 3 %; MONOCYTES ABSOLUTE (CALC) 0.25 10/3/uL (0.21-1.20); NEUTROPHILS ABSOLUTE (CALC) 6.89 10/3/uL (2.02-8.40); SEGMENTED NEUTROPHIL (0) 83 %; TOTAL NUCLEATED CELLS 100
[2016-12-29 04:19] LABS: PLATELET ESTIMATE SLT DEC (ADEQUATE); RBC MORPHOLOGY NORM (NORMAL)
[2016-12-30 04:01] LABS: BASOPHILS 0.2 %; BASOPHILS ABSOLUTE 0.01 10/3/uL (0.0-0.16); EOSINOPHILS ABSOLUTE 0.06 10/3/uL (0.0-0.53); HEMATOCRIT 30.3 % (40.0-51.0); IMMATURE GRANULOCYTES ABSOLUTE 0.12 10/3/uL (0.0-0.11); LYMPHOCYTES 14.2 %; LYMPHOCYTES ABSOLUTE 0.83 10/3/uL (0.67-4.30); MEAN CORPUSCULAR HEMOGLOB 30.9 pg (26.0-34.0); MEAN CORPUSCULAR VOLUME 93.5 fL (80-100); MONOCYTES 7.2 %; MONOCYTES ABSOLUTE 0.42 10/3/uL (0.21-1.20); NEUTROPHILS 75.4 %; NEUTROPHILS ABSOLUTE 4.42 10/3/uL (2.02-8.40); RBC DISTRIBUTION WIDTH 16.4 % (12.0-16.0); RED CELL COUNT 3.24 10/6/uL (4.7-6.1); WHITE BLOOD CELLS 5.9 10/3/uL (4.5-10.5)
[2016-12-30 04:03] LABS: MANUAL DIFF NO %; PLATELET COUNT 199 10/3/uL (150-400)
[2016-12-30 04:17] LABS: CALCIUM, SERUM 8.3 MG/DL (8.5-10.4); CHLORIDE, SERUM 107 MMOL/L (96-112); CO2 (CARBON DIOXIDE) 30 MMOL/L (24-34); CREATININE 0.85 MG/DL (0.70-1.30); GFR AFRICAN AMERICAN 106 ML/MIN (>=60); GFR NON AFRICAN AMERICAN 91 ML/MIN (>=60); SODIUM, SERUM 143 MMOL/L (135-148)
[2016-12-30 04:22] LABS: BUN (BLOOD UREA NITROGEN) 40 MG/DL (6-23); GLUCOSE, SERUM 202 MG/DL (60-99); PHOSPHORUS, SERUM 3.7 MG/DL (2.5-4.5); POTASSIUM, SERUM 4.3 MMOL/L (3.5-5.3)
[2016-12-30 04:56] LABS: PROCALCITONIN 4.18 ng/mL (<0.5)
[2016-12-31 04:56] LABS: HEMOGLOBIN 11.1 g/dL (13.6-17.8); MEAN CORPUS HGB CONC 33.6 g/dL (32.0-36.0); MEAN CORPUSCULAR HEMOGLOB 31.5 pg (26.0-34.0); MEAN CORPUSCULAR VOLUME 93.8 fL (80-100); MEAN PLATELET VOLUME 9.9 fL (9.2-13.0); PLATELET COUNT 246 10/3/uL (150-400); RBC DISTRIBUTION WIDTH 16.2 % (12.0-16.0); RED CELL COUNT 3.52 10/6/uL (4.7-6.1); WHITE BLOOD CELLS 6.2 10/3/uL (4.5-10.5)
[2016-12-31 05:01] LABS: MANUAL DIFF YES %
[2016-12-31 05:12] LABS: CALCIUM, SERUM 8.6 MG/DL (8.5-10.4); CHLORIDE, SERUM 107 MMOL/L (96-112); CO2 (CARBON DIOXIDE) 28 MMOL/L (24-34); CREATININE 0.71 MG/DL (0.70-1.30); GFR AFRICAN AMERICAN 114 ML/MIN (>=60); GFR NON AFRICAN AMERICAN 98 ML/MIN (>=60); POTASSIUM, SERUM 4.2 MMOL/L (3.5-5.3); SGOT(AST) 56 U/L (5-40); SGPT(ALT) 81 U/L (5-65); SODIUM, SERUM 141 MMOL/L (135-148); TOTAL BILIRUBIN 0.6 MG/DL (0-1.2); TOTAL PROTEIN 6.4 G/DL (6.0-8.5)
[2016-12-31 05:13] LABS: A/G RATIO 0.6 (0.7-1.9); ALBUMIN 2.3 G/DL (3.5-5.0); ALKALINE PHOSPHATASE 231 U/L (45-117); BUN (BLOOD UREA NITROGEN) 32 MG/DL (6-23); GLOBULIN 4.1 G/DL (2.5-4.1); GLUCOSE, SERUM 145 MG/DL (60-99)
[2016-12-31 05:18] LABS: BAND NEUTROPHILS 4 %; IMMATURE GRANS ABSOLUTE (CALC) 0.06 10/3/uL (0.0-0.11); LYMPHOCYTES 14 %; LYMPHOCYTES ABSOLUTE (CALC) 0.87 10/3/uL (0.67-4.30); METAMYELOCYTES 1 %; MONOCYTES 6 %; MONOCYTES ABSOLUTE (CALC) 0.37 10/3/uL (0.21-1.20); PLATELET ESTIMATE ADQ (ADEQUATE); RBC MORPHOLOGY NORM (NORMAL); SEGMENTED NEUTROPHIL (0) 75 %; TOTAL NUCLEATED CELLS 100
[2016-12-31 11:14] LABS: HEPATITIS B SURFACE ANTIGEN NON-REACTIVE (NON-REACT)
[2016-12-31 11:42] LABS: HEPATITIS B CORE AB IGM NON-REACTIVE (NON-REAC)
[2016-12-31 11:44] LABS: HEP A ANTIBODY IGM NON-REACTIVE (NON-REACT)
[2016-12-31 11:46] LABS: BE (BASE EXCESS) 1.4 MEQ/L (0 +/- 2.5); HCO3 (ACTUAL BICARBONATE) 25.1 MEQ/L (23-27); INSTRUMENT SERIAL # 8083; METHEMOGLOBIN 0.2 % (0-3); PCO2 (CO2 TENSION) 36 MMHG (35-45); PO2 (O2 TENSION) 54 MMHG (79-93); pH 7.46 (7.37-7.43)
[2016-12-31 11:47] LABS: ALLENS TEST Pos; DEVICE Nasal Cannula 6L; HEMOBLOGIN CONTENT 11.5 G/DL (14-18); O2 CONTENT 14.1 VOL% (18-24); OPERATOR ID 32214; SAMPLE Arterial
[2016-12-31 13:17] LABS: HEPATITIS C ANTIBODY REACTIVE (NON-REACT)
[2017-01-01 05:02] LABS: BASOPHILS 0.2 %; BASOPHILS ABSOLUTE 0.01 10/3/uL (0.0-0.16); EOSINOPHILS ABSOLUTE 0.06 10/3/uL (0.0-0.53); HEMATOCRIT 32.2 % (40.0-51.0); HEMOGLOBIN 10.7 g/dL (13.6-17.8); IMMATURE GRANULOCYTES 1.5 %; IMMATURE GRANULOCYTES ABSOLUTE 0.09 10/3/uL (0.0-0.11); LYMPHOCYTES 17.4 %; LYMPHOCYTES ABSOLUTE 1.05 10/3/uL (0.67-4.30); MEAN CORPUS HGB CONC 33.2 g/dL (32.0-36.0); MEAN CORPUSCULAR VOLUME 93.3 fL (80-100); MEAN PLATELET VOLUME 9.9 fL (9.2-13.0); MONOCYTES 9.8 %; MONOCYTES ABSOLUTE 0.59 10/3/uL (0.21-1.20); NEUTROPHILS 70.1 %; NEUTROPHILS ABSOLUTE 4.22 10/3/uL (2.02-8.40); PLATELET COUNT 295 10/3/uL (150-400); RBC DISTRIBUTION WIDTH 16.1 % (12.0-16.0); RED CELL COUNT 3.45 10/6/uL (4.7-6.1)
[2017-01-01 05:03] LABS: MANUAL DIFF NO %
[2017-01-01 05:12] LABS: CALCIUM, SERUM 8.5 MG/DL (8.5-10.4); CHLORIDE, SERUM 107 MMOL/L (96-112); CO2 (CARBON DIOXIDE) 27 MMOL/L (24-34); CREATININE 0.77 MG/DL (0.70-1.30); GFR AFRICAN AMERICAN 110 ML/MIN (>=60); GFR NON AFRICAN AMERICAN 95 ML/MIN (>=60); PHOSPHORUS, SERUM 4.5 MG/DL (2.5-4.5); POTASSIUM, SERUM 4.2 MMOL/L (3.5-5.3); SODIUM, SERUM 141 MMOL/L (135-148)
[2017-01-01 05:17] LABS: BUN (BLOOD UREA NITROGEN) 37 MG/DL (6-23); GLUCOSE, SERUM 69 MG/DL (60-99)
[2017-01-01 06:04] LABS: PROCALCITONIN 1.72 ng/mL (<0.5)
[2017-01-02 03:53] LABS: BE (BASE EXCESS) -0.8 MEQ/L (0 +/- 2.5); CARBOXYHEMOGLOBIN 1.2 % (0-3); HCO3 (ACTUAL BICARBONATE) 23.6 MEQ/L (23-27); HEMOBLOGIN CONTENT 12.7 G/DL (14-18); INSTRUMENT SERIAL # 8083; METHEMOGLOBIN 0.2 % (0-3); MODE CMV; O2 CONTENT 17.1 VOL% (18-24); OPERATOR ID 16503; PCO2 (CO2 TENSION) 38 MMHG (35-45); PO2 (O2 TENSION) 88 MMHG (79-93); SAMPLE Arterial; TIDAL VOLUME 550 ML; pH 7.41 (7.37-7.43)
[2017-01-02 05:50] LABS: HEMATOCRIT 31.6 % (40.0-51.0); HEMOGLOBIN 10.3 g/dL (13.6-17.8); MEAN CORPUS HGB CONC 32.6 g/dL (32.0-36.0); MEAN CORPUSCULAR HEMOGLOB 30.6 pg (26.0-34.0); MEAN CORPUSCULAR VOLUME 93.8 fL (80-100); PLATELET COUNT 309 10/3/uL (150-400); RBC DISTRIBUTION WIDTH 15.9 % (12.0-16.0); RED CELL COUNT 3.37 10/6/uL (4.7-6.1); WHITE BLOOD CELLS 6.4 10/3/uL (4.5-10.5)
[2017-01-02 05:54] LABS: MANUAL DIFF YES %
[2017-01-02 05:59] LABS: CALCIUM, SERUM 8.6 MG/DL (8.5-10.4); CHLORIDE, SERUM 107 MMOL/L (96-112); CO2 (CARBON DIOXIDE) 24 MMOL/L (24-34); CREATININE 0.91 MG/DL (0.70-1.30); GFR AFRICAN AMERICAN 102 ML/MIN (>=60); GFR NON AFRICAN AMERICAN 88 ML/MIN (>=60); PHOSPHORUS, SERUM 4.5 MG/DL (2.5-4.5); POTASSIUM, SERUM 4.3 MMOL/L (3.5-5.3); SODIUM, SERUM 140 MMOL/L (135-148)
[2017-01-02 06:00] LABS: BUN (BLOOD UREA NITROGEN) 46 MG/DL (6-23); GLUCOSE, SERUM 169 MG/DL (60-99)
[2017-01-02 06:56] LABS: BAND NEUTROPHILS 8 %; EOSINOPHILS 4 %; EOSINOPHILS ABSOLUTE (CALC) 0.26 10/3/uL (0.0-0.53); LYMPHOCYTES 17 %; LYMPHOCYTES ABSOLUTE (CALC) 1.09 10/3/uL (0.67-4.30); MONOCYTES 14 %; NEUTROPHILS ABSOLUTE (CALC) 4.16 10/3/uL (2.02-8.40); PLATELET ESTIMATE ADQ (ADEQUATE); POLYCHROMASIA 1+ (2-5/OIF) (0-1/OIF); SEGMENTED NEUTROPHIL (0) 57 %; TARGET CELLS OCC (1-2/OIF) (0-1/OIF); TOTAL NUCLEATED CELLS 100; TOXIC GRANULATION 1+; VACUOLATED NEUTROPHILES OCC
[2017-01-02 06:57] LABS: HELMET CELLS OCC (0-2/OIF)
[2017-01-03 05:36] LABS: BASOPHILS 0.2 %; BASOPHILS ABSOLUTE 0.01 10/3/uL (0.0-0.16); EOSINOPHILS 0.8 %; EOSINOPHILS ABSOLUTE 0.04 10/3/uL (0.0-0.53); HEMATOCRIT 27.9 % (40.0-51.0); HEMOGLOBIN 9.2 g/dL (13.6-17.8); IMMATURE GRANULOCYTES 1.2 %; IMMATURE GRANULOCYTES ABSOLUTE 0.06 10/3/uL (0.0-0.11); LYMPHOCYTES ABSOLUTE 0.86 10/3/uL (0.67-4.30); MANUAL DIFF NO %; MEAN CORPUSCULAR HEMOGLOB 31.1 pg (26.0-34.0); MEAN CORPUSCULAR VOLUME 94.3 fL (80-100); MEAN PLATELET VOLUME 9.5 fL (9.2-13.0); MONOCYTES 6.1 %; MONOCYTES ABSOLUTE 0.31 10/3/uL (0.21-1.20); NEUTROPHILS 74.7 %; NEUTROPHILS ABSOLUTE 3.77 10/3/uL (2.02-8.40); PLATELET COUNT 312 10/3/uL (150-400); RBC DISTRIBUTION WIDTH 15.7 % (12.0-16.0); RED CELL COUNT 2.96 10/6/uL (4.7-6.1); WHITE BLOOD CELLS 5.1 10/3/uL (4.5-10.5)
[2017-01-03 05:48] LABS: CALCIUM, SERUM 8.7 MG/DL (8.5-10.4); CHLORIDE, SERUM 109 MMOL/L (96-112); CO2 (CARBON DIOXIDE) 25 MMOL/L (24-34); GFR AFRICAN AMERICAN 109 ML/MIN (>=60); GFR NON AFRICAN AMERICAN 94 ML/MIN (>=60); GLUCOSE, SERUM 194 MG/DL (60-99); PHOSPHORUS, SERUM 3.8 MG/DL (2.5-4.5); POTASSIUM, SERUM 4.5 MMOL/L (3.5-5.3); SODIUM, SERUM 141 MMOL/L (135-148)
[2017-01-03 05:49] LABS: BUN (BLOOD UREA NITROGEN) 40 MG/DL (6-23)
[2017-01-03 06:21] LABS: PROCALCITONIN 0.73 ng/mL (<0.5)
[2017-01-04 03:54] LABS: INSTRUMENT SERIAL # 8083
[2017-01-04 03:55] LABS: ALLENS TEST Pos; BE (BASE EXCESS) 0.9 MEQ/L (0 +/- 2.5); CARBOXYHEMOGLOBIN 0.9 % (0-3); HCO3 (ACTUAL BICARBONATE) 25.4 MEQ/L (23-27); HEMOBLOGIN CONTENT 9.8 G/DL (14-18); METHEMOGLOBIN 0.1 % (0-3); MODE CMV; O2 CONTENT 13.1 VOL% (18-24); PCO2 (CO2 TENSION) 40 MMHG (35-45); PO2 (O2 TENSION) 80 MMHG (79-93); SAMPLE Arterial; TIDAL VOLUME 550 ML; pH 7.42 (7.37-7.43)
[2017-01-04 06:21] LABS: BASOPHILS 0.5 %; BASOPHILS ABSOLUTE 0.02 10/3/uL (0.0-0.16); EOSINOPHILS 0.9 %; EOSINOPHILS ABSOLUTE 0.04 10/3/uL (0.0-0.53); HEMATOCRIT 28.4 % (40.0-51.0); HEMOGLOBIN 9.3 g/dL (13.6-17.8); IMMATURE GRANULOCYTES 2.3 %; LYMPHOCYTES 22.5 %; MEAN CORPUS HGB CONC 32.7 g/dL (32.0-36.0); MEAN CORPUSCULAR HEMOGLOB 30.9 pg (26.0-34.0); MEAN CORPUSCULAR VOLUME 94.4 fL (80-100); MONOCYTES 10.4 %; MONOCYTES ABSOLUTE 0.46 10/3/uL (0.21-1.20); NEUTROPHILS 63.4 %; NEUTROPHILS ABSOLUTE 2.82 10/3/uL (2.02-8.40); PLATELET COUNT 334 10/3/uL (150-400); RBC DISTRIBUTION WIDTH 15.6 % (12.0-16.0); RED CELL COUNT 3.01 10/6/uL (4.7-6.1); WHITE BLOOD CELLS 4.4 10/3/uL (4.5-10.5)
[2017-01-04 06:29] LABS: MANUAL DIFF NO %
[2017-01-04 06:39] LABS: BUN (BLOOD UREA NITROGEN) 33 MG/DL (6-23); CALCIUM, SERUM 9.1 MG/DL (8.5-10.4); CHLORIDE, SERUM 108 MMOL/L (96-112); CO2 (CARBON DIOXIDE) 26 MMOL/L (24-34); CREATININE 0.71 MG/DL (0.70-1.30); GFR AFRICAN AMERICAN 114 ML/MIN (>=60); GFR NON AFRICAN AMERICAN 98 ML/MIN (>=60); GLUCOSE, SERUM 135 MG/DL (60-99); PHOSPHORUS, SERUM 4.3 MG/DL (2.5-4.5); POTASSIUM, SERUM 4.1 MMOL/L (3.5-5.3); SODIUM, SERUM 141 MMOL/L (135-148)
[2017-01-04 07:58] LABS: PROCALCITONIN 0.39 ng/mL (<0.5)
[2017-01-05 04:59] LABS: BASOPHILS ABSOLUTE 0.04 10/3/uL (0.0-0.16); EOSINOPHILS 1.3 %; EOSINOPHILS ABSOLUTE 0.05 10/3/uL (0.0-0.53); HEMATOCRIT 29.5 % (40.0-51.0); HEMOGLOBIN 9.7 g/dL (13.6-17.8); IMMATURE GRANULOCYTES 1.8 %; IMMATURE GRANULOCYTES ABSOLUTE 0.07 10/3/uL (0.0-0.11); LYMPHOCYTES 25.6 %; LYMPHOCYTES ABSOLUTE 1.02 10/3/uL (0.67-4.30); MANUAL DIFF NO %; MEAN CORPUS HGB CONC 32.9 g/dL (32.0-36.0); MEAN CORPUSCULAR HEMOGLOB 31.1 pg (26.0-34.0); MEAN CORPUSCULAR VOLUME 94.6 fL (80-100); MEAN PLATELET VOLUME 9.3 fL (9.2-13.0); MONOCYTES 8.5 %; MONOCYTES ABSOLUTE 0.34 10/3/uL (0.21-1.20); NEUTROPHILS 61.8 %; NEUTROPHILS ABSOLUTE 2.47 10/3/uL (2.02-8.40); PLATELET COUNT 345 10/3/uL (150-400); RBC DISTRIBUTION WIDTH 15.3 % (12.0-16.0); RED CELL COUNT 3.12 10/6/uL (4.7-6.1)
[2017-01-05 05:12] LABS: BUN (BLOOD UREA NITROGEN) 31 MG/DL (6-23); CALCIUM, SERUM 8.8 MG/DL (8.5-10.4); CHLORIDE, SERUM 104 MMOL/L (96-112); CO2 (CARBON DIOXIDE) 25 MMOL/L (24-34); CREATININE 0.68 MG/DL (0.70-1.30); GFR AFRICAN AMERICAN 116 ML/MIN (>=60); GFR NON AFRICAN AMERICAN 100 ML/MIN (>=60); PHOSPHORUS, SERUM 4.5 MG/DL (2.5-4.5); POTASSIUM, SERUM 4.2 MMOL/L (3.5-5.3); SODIUM, SERUM 136 MMOL/L (135-148)
[2017-01-05 05:13] LABS: GLUCOSE, SERUM 166 MG/DL (60-99)
[2017-01-06 04:18] LABS: BASOPHILS 0.8 %; BASOPHILS ABSOLUTE 0.04 10/3/uL (0.0-0.16); EOSINOPHILS 0.8 %; EOSINOPHILS ABSOLUTE 0.04 10/3/uL (0.0-0.53); HEMATOCRIT 30.3 % (40.0-51.0); IMMATURE GRANULOCYTES 1.4 %; IMMATURE GRANULOCYTES ABSOLUTE 0.07 10/3/uL (0.0-0.11); LYMPHOCYTES 23.3 %; LYMPHOCYTES ABSOLUTE 1.13 10/3/uL (0.67-4.30); MANUAL DIFF NO %; MEAN CORPUSCULAR HEMOGLOB 30.8 pg (26.0-34.0); MEAN CORPUSCULAR VOLUME 93.2 fL (80-100); MONOCYTES 7.2 %; MONOCYTES ABSOLUTE 0.35 10/3/uL (0.21-1.20); NEUTROPHILS 66.5 %; NEUTROPHILS ABSOLUTE 3.21 10/3/uL (2.02-8.40); PLATELET COUNT 369 10/3/uL (150-400); RBC DISTRIBUTION WIDTH 14.5 % (12.0-16.0); RED CELL COUNT 3.25 10/6/uL (4.7-6.1); WHITE BLOOD CELLS 4.8 10/3/uL (4.5-10.5)
[2017-01-06 04:33] LABS: BUN (BLOOD UREA NITROGEN) 26 MG/DL (6-23); CHLORIDE, SERUM 105 MMOL/L (96-112); CO2 (CARBON DIOXIDE) 27 MMOL/L (24-34); CREATININE 0.68 MG/DL (0.70-1.30); GFR AFRICAN AMERICAN 116 ML/MIN (>=60); GFR NON AFRICAN AMERICAN 100 ML/MIN (>=60); GLUCOSE, SERUM 69 MG/DL (60-99); PHOSPHORUS, SERUM 3.7 MG/DL (2.5-4.5); POTASSIUM, SERUM 3.8 MMOL/L (3.5-5.3); SODIUM, SERUM 135 MMOL/L (135-148)
[2017-01-07 05:03] LABS: BASOPHILS 0.7 %; BASOPHILS ABSOLUTE 0.03 10/3/uL (0.0-0.16); EOSINOPHILS 1.2 %; EOSINOPHILS ABSOLUTE 0.05 10/3/uL (0.0-0.53); HEMATOCRIT 29.3 % (40.0-51.0); HEMOGLOBIN 9.8 g/dL (13.6-17.8); IMMATURE GRANULOCYTES 0.7 %; IMMATURE GRANULOCYTES ABSOLUTE 0.03 10/3/uL (0.0-0.11); LYMPHOCYTES 27.1 %; LYMPHOCYTES ABSOLUTE 1.09 10/3/uL (0.67-4.30); MEAN CORPUS HGB CONC 33.4 g/dL (32.0-36.0); MEAN CORPUSCULAR HEMOGLOB 31.5 pg (26.0-34.0); MEAN CORPUSCULAR VOLUME 94.2 fL (80-100); MEAN PLATELET VOLUME 8.8 fL (9.2-13.0); MONOCYTES 9.2 %; MONOCYTES ABSOLUTE 0.37 10/3/uL (0.21-1.20); NEUTROPHILS 61.1 %; NEUTROPHILS ABSOLUTE 2.45 10/3/uL (2.02-8.40); PLATELET COUNT 340 10/3/uL (150-400); RBC DISTRIBUTION WIDTH 14.4 % (12.0-16.0); RED CELL COUNT 3.11 10/6/uL (4.7-6.1)
[2017-01-07 05:04] LABS: MANUAL DIFF NO %
[2017-01-07 05:20] LABS: BUN (BLOOD UREA NITROGEN) 28 MG/DL (6-23); CALCIUM, SERUM 8.8 MG/DL (8.5-10.4); CHLORIDE, SERUM 109 MMOL/L (96-112); CO2 (CARBON DIOXIDE) 27 MMOL/L (24-34); CREATININE 0.71 MG/DL (0.70-1.30); GFR AFRICAN AMERICAN 114 ML/MIN (>=60); GFR NON AFRICAN AMERICAN 98 ML/MIN (>=60); PHOSPHORUS, SERUM 3.4 MG/DL (2.5-4.5); POTASSIUM, SERUM 3.4 MMOL/L (3.5-5.3); SODIUM, SERUM 135 MMOL/L (135-148)
[2017-01-07 05:23] LABS: GLUCOSE, SERUM 131 MG/DL (60-99)
[2017-01-08 04:18] LABS: BASOPHILS 0.7 %; BASOPHILS ABSOLUTE 0.03 10/3/uL (0.0-0.16); EOSINOPHILS 1.1 %; EOSINOPHILS ABSOLUTE 0.05 10/3/uL (0.0-0.53); HEMOGLOBIN 10.5 g/dL (13.6-17.8); IMMATURE GRANULOCYTES 1.1 %; IMMATURE GRANULOCYTES ABSOLUTE 0.05 10/3/uL (0.0-0.11); LYMPHOCYTES 24.3 %; MEAN CORPUS HGB CONC 32.8 g/dL (32.0-36.0); MEAN CORPUSCULAR VOLUME 94.4 fL (80-100); MEAN PLATELET VOLUME 9.3 fL (9.2-13.0); MONOCYTES 10.8 %; MONOCYTES ABSOLUTE 0.49 10/3/uL (0.21-1.20); NEUTROPHILS ABSOLUTE 2.81 10/3/uL (2.02-8.40); PLATELET COUNT 404 10/3/uL (150-400); RBC DISTRIBUTION WIDTH 14.5 % (12.0-16.0); RED CELL COUNT 3.39 10/6/uL (4.7-6.1); WHITE BLOOD CELLS 4.5 10/3/uL (4.5-10.5)
[2017-01-08 04:26] LABS: MANUAL DIFF NO %
[2017-01-08 04:28] LABS: BUN (BLOOD UREA NITROGEN) 25 MG/DL (6-23); CALCIUM, SERUM 9.2 MG/DL (8.5-10.4); CHLORIDE, SERUM 104 MMOL/L (96-112); CO2 (CARBON DIOXIDE) 27 MMOL/L (24-34); CREATININE 0.66 MG/DL (0.70-1.30); GFR AFRICAN AMERICAN 118 ML/MIN (>=60); GFR NON AFRICAN AMERICAN 101 ML/MIN (>=60); GLUCOSE, SERUM 97 MG/DL (60-99); PHOSPHORUS, SERUM 3.5 MG/DL (2.5-4.5); POTASSIUM, SERUM 3.8 MMOL/L (3.5-5.3); SODIUM, SERUM 138 MMOL/L (135-148)
[2017-01-09 08:11] LABS: BUN (BLOOD UREA NITROGEN) 22 MG/DL (6-23); CHLORIDE, SERUM 106 MMOL/L (96-112); CO2 (CARBON DIOXIDE) 24 MMOL/L (24-34); CREATININE 0.73 MG/DL (0.70-1.30); GFR AFRICAN AMERICAN 113 ML/MIN (>=60); GFR NON AFRICAN AMERICAN 97 ML/MIN (>=60); PHOSPHORUS, SERUM 4.2 MG/DL (2.5-4.5); POTASSIUM, SERUM 4.1 MMOL/L (3.5-5.3); SODIUM, SERUM 139 MMOL/L (135-148)
[2017-01-09 08:13] LABS: GLUCOSE, SERUM 123 MG/DL (60-99)
[2017-01-09 09:03] LABS: BASOPHILS 0.7 %; BASOPHILS ABSOLUTE 0.04 10/3/uL (0.0-0.16); EOSINOPHILS 0.5 %; EOSINOPHILS ABSOLUTE 0.03 10/3/uL (0.0-0.53); HEMATOCRIT 35.1 % (40.0-51.0); HEMOGLOBIN 11.6 g/dL (13.6-17.8); IMMATURE GRANULOCYTES 1.2 %; IMMATURE GRANULOCYTES ABSOLUTE 0.07 10/3/uL (0.0-0.11); LYMPHOCYTES 25.6 %; LYMPHOCYTES ABSOLUTE 1.55 10/3/uL (0.67-4.30); MANUAL DIFF NO %; MEAN CORPUSCULAR HEMOGLOB 30.9 pg (26.0-34.0); MEAN CORPUSCULAR VOLUME 93.6 fL (80-100); MEAN PLATELET VOLUME 8.9 fL (9.2-13.0); MONOCYTES 8.8 %; MONOCYTES ABSOLUTE 0.53 10/3/uL (0.21-1.20); NEUTROPHILS 63.2 %; NEUTROPHILS ABSOLUTE 3.83 10/3/uL (2.02-8.40); PLATELET COUNT 372 10/3/uL (150-400); RBC DISTRIBUTION WIDTH 14.8 % (12.0-16.0); RED CELL COUNT 3.75 10/6/uL (4.7-6.1); WHITE BLOOD CELLS 6.1 10/3/uL (4.5-10.5)
[2017-01-10 05:03] LABS: BASOPHILS 1.2 %; BASOPHILS ABSOLUTE 0.05 10/3/uL (0.0-0.16); EOSINOPHILS 0.2 %; EOSINOPHILS ABSOLUTE 0.01 10/3/uL (0.0-0.53); HEMATOCRIT 32.5 % (40.0-51.0); HEMOGLOBIN 10.4 g/dL (13.6-17.8); IMMATURE GRANULOCYTES 1.2 %; IMMATURE GRANULOCYTES ABSOLUTE 0.05 10/3/uL (0.0-0.11); LYMPHOCYTES 31.4 %; LYMPHOCYTES ABSOLUTE 1.35 10/3/uL (0.67-4.30); MEAN CORPUSCULAR HEMOGLOB 30.3 pg (26.0-34.0); MEAN CORPUSCULAR VOLUME 94.8 fL (80-100); MEAN PLATELET VOLUME 8.6 fL (9.2-13.0); MONOCYTES 9.8 %; MONOCYTES ABSOLUTE 0.42 10/3/uL (0.21-1.20); NEUTROPHILS 56.2 %; NEUTROPHILS ABSOLUTE 2.42 10/3/uL (2.02-8.40); PLATELET COUNT 325 10/3/uL (150-400); RED CELL COUNT 3.43 10/6/uL (4.7-6.1); WHITE BLOOD CELLS 4.3 10/3/uL (4.5-10.5)
[2017-01-10 05:04] LABS: MANUAL DIFF NO %
[2017-01-10 05:19] LABS: BUN (BLOOD UREA NITROGEN) 22 MG/DL (6-23); CALCIUM, SERUM 9.4 MG/DL (8.5-10.4); CHLORIDE, SERUM 109 MMOL/L (96-112); CO2 (CARBON DIOXIDE) 27 MMOL/L (24-34); CREATININE 0.73 MG/DL (0.70-1.30); GFR AFRICAN AMERICAN 113 ML/MIN (>=60); GFR NON AFRICAN AMERICAN 97 ML/MIN (>=60); GLUCOSE, SERUM 107 MG/DL (60-99); POTASSIUM, SERUM 3.8 MMOL/L (3.5-5.3); SODIUM, SERUM 140 MMOL/L (135-148)
[2017-01-11 07:06] LABS: BASOPHILS 1.2 %; BASOPHILS ABSOLUTE 0.05 10/3/uL (0.0-0.16); EOSINOPHILS 0.7 %; EOSINOPHILS ABSOLUTE 0.03 10/3/uL (0.0-0.53); HEMATOCRIT 33.4 % (40.0-51.0); IMMATURE GRANULOCYTES 0.9 %; IMMATURE GRANULOCYTES ABSOLUTE 0.04 10/3/uL (0.0-0.11); LYMPHOCYTES 31.2 %; LYMPHOCYTES ABSOLUTE 1.35 10/3/uL (0.67-4.30); MEAN CORPUS HGB CONC 32.9 g/dL (32.0-36.0); MEAN CORPUSCULAR HEMOGLOB 31.4 pg (26.0-34.0); MEAN CORPUSCULAR VOLUME 95.4 fL (80-100); MEAN PLATELET VOLUME 8.7 fL (9.2-13.0); MONOCYTES 8.5 %; MONOCYTES ABSOLUTE 0.37 10/3/uL (0.21-1.20); NEUTROPHILS 57.5 %; NEUTROPHILS ABSOLUTE 2.49 10/3/uL (2.02-8.40); PLATELET COUNT 335 10/3/uL (150-400); WHITE BLOOD CELLS 4.3 10/3/uL (4.5-10.5)
[2017-01-11 07:08] LABS: MANUAL DIFF NO %
[2017-01-11 07:19] LABS: BUN (BLOOD UREA NITROGEN) 17 MG/DL (6-23); CALCIUM, SERUM 9.2 MG/DL (8.5-10.4); CHLORIDE, SERUM 109 MMOL/L (96-112); CO2 (CARBON DIOXIDE) 27 MMOL/L (24-34); CREATININE 0.81 MG/DL (0.70-1.30); GFR AFRICAN AMERICAN 108 ML/MIN (>=60); GFR NON AFRICAN AMERICAN 93 ML/MIN (>=60); GLUCOSE, SERUM 89 MG/DL (60-99); POTASSIUM, SERUM 3.7 MMOL/L (3.5-5.3); SODIUM, SERUM 142 MMOL/L (135-148)
[2017-01-12 06:20] LABS: BASOPHILS 0.5 %; BASOPHILS ABSOLUTE 0.03 10/3/uL (0.0-0.16); EOSINOPHILS 0.6 %; EOSINOPHILS ABSOLUTE 0.04 10/3/uL (0.0-0.53); HEMATOCRIT 32.4 % (40.0-51.0); HEMOGLOBIN 10.7 g/dL (13.6-17.8); IMMATURE GRANULOCYTES 0.8 %; IMMATURE GRANULOCYTES ABSOLUTE 0.05 10/3/uL (0.0-0.11); LYMPHOCYTES 18.7 %; LYMPHOCYTES ABSOLUTE 1.22 10/3/uL (0.67-4.30); MEAN CORPUSCULAR HEMOGLOB 31.3 pg (26.0-34.0); MEAN CORPUSCULAR VOLUME 94.7 fL (80-100); MEAN PLATELET VOLUME 8.9 fL (9.2-13.0); MONOCYTES 8.9 %; MONOCYTES ABSOLUTE 0.58 10/3/uL (0.21-1.20); NEUTROPHILS 70.5 %; NEUTROPHILS ABSOLUTE 4.59 10/3/uL (2.02-8.40); PLATELET COUNT 317 10/3/uL (150-400); RBC DISTRIBUTION WIDTH 14.9 % (12.0-16.0); RED CELL COUNT 3.42 10/6/uL (4.7-6.1)
[2017-01-12 06:21] LABS: MANUAL DIFF NO %; WHITE BLOOD CELLS 6.5 10/3/uL (4.5-10.5)
[2017-01-12 06:32] LABS: BUN (BLOOD UREA NITROGEN) 14 MG/DL (6-23); CALCIUM, SERUM 9.6 MG/DL (8.5-10.4); CHLORIDE, SERUM 111 MMOL/L (96-112); CO2 (CARBON DIOXIDE) 23 MMOL/L (24-34); CREATININE 0.81 MG/DL (0.70-1.30); GFR AFRICAN AMERICAN 108 ML/MIN (>=60); GFR NON AFRICAN AMERICAN 93 ML/MIN (>=60); PHOSPHORUS, SERUM 3.9 MG/DL (2.5-4.5); POTASSIUM, SERUM 3.6 MMOL/L (3.5-5.3); SODIUM, SERUM 141 MMOL/L (135-148)
[2017-01-12 06:36] LABS: GLUCOSE, SERUM 64 MG/DL (60-99)
[2017-01-13] MEDS ORDERED: CORDARONE PO (15:43)
[2017-01-13] MEDS ORDERED: FOLIC PO (15:44)
[2017-01-13] MEDS ORDERED: MELA3 PO (15:44)
[2017-01-13] MEDS ORDERED: LOP25 PO (15:45)
[2017-01-13] MEDS ORDERED: HABIT21 TOP (15:45)
[2017-01-13] MEDS ORDERED: SEROQUEL50 MG PO (15:46)
[2017-01-13] MEDS ORDERED: FLORASTOR250 MG PO (15:47)
[2017-01-13] MEDS ORDERED: T PO (15:48)
== END 2017-01-13 17:16 | disposition home or self-care (01) | DRG 870 ==
LOC: ER 14:26 → IMCU 18:30 → MIC 12-25 08:46 → 6NO 01-11 19:22
PROVIDERS: Emergency Medicine; Internal Medicine; Internal Medicine Critical Care Medicine; Internal Medicine Nephrology; Internal Medicine Pulmonary Disease; Specialist
PROC: 5A1955Z Respiratory Ventilation, Greater than 96 Consecutive Hours (ICD-10-PCS; principal; 2016-12-23)
PROC: 0BH17EZ Insertion of Endotracheal Airway into Trachea, Via Natural or Artificial Opening (ICD-10-PCS; 2016-12-23)
PROC: 02HV33Z Insertion of Infusion Device into Superior Vena Cava, Percutaneous Approach (ICD-10-PCS; 2016-12-24)
PROC: 4A02X4A Measurement of Cardiac Electrical Activity, Guidance, External Approach (ICD-10-PCS; 2016-12-24)
PROC: 5A1955Z Respiratory Ventilation, Greater than 96 Consecutive Hours (ICD-10-PCS; 2016-12-31)
PROC: 0BH17EZ Insertion of Endotracheal Airway into Trachea, Via Natural or Artificial Opening (ICD-10-PCS; 2016-12-31)
DX: A41.59 Other Gram-negative sepsis (principal); J96.01 Acute respiratory failure with hypoxia; R65.21 Severe sepsis with septic shock; E43 Unspecified severe protein-calorie malnutrition; J15.6 Pneumonia due to other Gram-negative bacteria; N17.9 Acute kidney failure, unspecified; E87.1 Hypo-osmolality and hyponatremia; F10.231 Alcohol dependence with withdrawal delirium; J90 Pleural effusion, not elsewhere classified; D69.6 Thrombocytopenia, unspecified; F11.20 Opioid dependence, uncomplicated; J44.1 Chronic obstructive pulmonary disease with (acute) exacerbation; J38.01 Paralysis of vocal cords and larynx, unilateral; F17.210 Nicotine dependence, cigarettes, uncomplicated; F10.20 Alcohol dependence, uncomplicated; B19.20 Unspecified viral hepatitis C without hepatic coma; I48.0 Paroxysmal atrial fibrillation; E11.9 Type 2 diabetes mellitus without complications; B96.3 Hemophilus influenzae [H. influenzae] as the cause of diseases classified elsewhere; R13.12 Dysphagia, oropharyngeal phase; Z85.118 Personal history of other malignant neoplasm of bronchus and lung; Z90.49 Acquired absence of other specified parts of digestive tract; Z98.890 Other specified postprocedural states; Z90.2 Acquired absence of lung [part of]; Z79.899 Other long term (current) drug therapy; Z79.84 Long term (current) use of oral hypoglycemic drugs; Z92.3 Personal history of irradiation
CPT/HCPCS: 31720; 36569; 36600; 70450; 71010; 71020; 71250; 74000; 74150; 74230; 80048; 80053; 80069; 80074; 80305; 80307; 82140; 82533; 82550; 82553; 82805; 82962; 83036; 83605; 83735; 83880; 84100; 84132; 84145; 84443; 84484; 85025; 85610; 85730; 86148; 86148-59; 87040; 87070; 87077; 87186; 87205; 87389; 87449; 87641; 92610-GN; 92611-GN; 93005; 93306; 94002; 94003; 94640; 94660; 94667; 94668; 96361; 96374; 96375; 97110-GP; 97116-GP; 97162-GP; 97164-GP; 97530-GP; 99291; A9270-GY; C1751; C1894; C9113; G8978-CK-GP; G8978-CM-GP; G8979-CJ-GP; G8979-CK-GP; G8996-CM-GN; G8996-CN-GN; G8997-CM-GN; G8997-CN-GN; G8998-CM-GN; G8998-CN-GN; J0282; J1170; J1630; J1720; J1940; J2185; J2250; J2405; J2543; J2550; J2930; J3010; J3370; J3411; J3475; P9047